=== PATIENT | male | born 1935 | race African-American/Black ===

== ENCOUNTER 2017-12-03 16:09 | Emergency (ER) | payer MEDICARE ==
[~2017-12-03] VITALS: Ht 175.3 cm; Wt 80.0 kg
[2017-12-03] MEDS ORDERED: LISI2.5T47 PO (16:14)
[2017-12-03] MEDS ORDERED: METF500T4 PO (16:14)
[2017-12-03] MEDS ORDERED: BENZ2AMP3 IJ (16:14)
[2017-12-03 17:23] LABS: BASOPHILS % 0.9 % (0.0-2.0); EOSINOPHILS % 1.9 % (0.0-5.0); HEMATOCRIT. 38.7 % (42.0-52.0); HEMOGLOBIN. 13.1 g/dL (14.0-18.0); LYMPHOCYTES % 21.9 % (20.0-50.0); MEAN CORPUSCULAR HEMOGLOBIN 29.5 pg (28.0-32.0); MEAN CORPUSCULAR VOLUME 87.4 fL (80.0-94.0); MEAN PLATELET VOLUME 8.2 fl (7.4-10.4); MONOCYTES % 4.9 % (2.0-8.0); NEUTROPHILS % 70.4 % (40.0-76.0); PLATELET 205 x1000/uL (130-400); RED BLOOD CELL COUNT 4.43 mill/uL (4.7-6.1); RED CELL DISTRIBUTION WIDTH 13.7 % (11.6-14.6)
[2017-12-03 17:24] LABS: CHLORIDE 110 mEq/L (98-107); INR 2.3; PROTHROMBIN TIME 24.6 sec (9.4-11.6)
[2017-12-03 17:52] LABS: CLARITY URINE CLEAR (CLEAR); COLOR URINE YELLOW (YELLOW); KETONES URINE NEGATIVE (NEGATIVE); LEUKOCYTE ESTERASE URINE NEGATIVE (NEGATIVE); NITRITE URINE NEGATIVE (NEGATIVE); OCCULT BLOOD URINE 1+ (NEGATIVE); PH URINE 6.5 (4.5-8.0); PROTEIN URINE NEGATIVE (NEGATIVE); SPECIFIC GRAVITY URINE 1.019 (1.005-1.030); UROBILINOGEN URINE 0.2 E.U./dL (0.2-1.0)
[2017-12-03 20:18] VITALS: BP 184/95
== END 2017-12-03 20:40 | disposition home or self-care (01) ==
LOC: ER 16:09
DX: R55 Syncope and collapse (principal); E11.9 Type 2 diabetes mellitus without complications; I48.91 Unspecified atrial fibrillation; Z86.73 Personal history of transient ischemic attack (TIA), and cerebral infarction without residual deficits; I67.82 Cerebral ischemia
CPT/HCPCS: 36415; 70450; 71045; 80053; 81003; 85025; 85610; 93005; 99285